=== PATIENT | female | born 1960 | race Caucasian/White ===

== ENCOUNTER 2017-08-22 08:22 | Day surgery (SDC) | payer OTHER ==
[~2017-08-22] VITALS: Ht 167.6 cm; Wt 102.1 kg
[~2017-08-22 08:22] MED LIST: Adipex-P37.5 MG; CLON1; GABA300; Hydrocodone-Ap1 EA20; LISI20; MELO7.5; MORP15ER; THYR60; TIZANIDINE HCL4 MG; ZOLP10
== END 2017-08-22 10:38 | disposition home or self-care (01) ==
LOC: ORSCSDS 08:22
PROVIDERS: Ophthalmology
PROC: 08RJ3JZ Replacement of Right Lens with Synthetic Substitute, Percutaneous Approach (ICD-10-PCS; principal; 2017-08-22 10:00)
DX: H25.11 Age-related nuclear cataract, right eye (principal); I10 Essential (primary) hypertension; E03.9 Hypothyroidism, unspecified; Z79.899 Other long term (current) drug therapy
CPT/HCPCS: J2250; J3301; J7120; V2632

== ENCOUNTER 2017-10-31 06:07 | Day surgery (SDC) | payer OTHER ==
[~2017-10-31] VITALS: Ht 167.6 cm; Wt 107.2 kg
[~2017-10-31 06:07] MED LIST changes: +PRED1
== END 2017-10-31 07:55 | disposition home or self-care (01) ==
LOC: ORSCSDS 06:07
PROVIDERS: Ophthalmology
PROC: 08RK3JZ Replacement of Left Lens with Synthetic Substitute, Percutaneous Approach (ICD-10-PCS; principal; 2017-10-31 07:30)
DX: H25.12 Age-related nuclear cataract, left eye (principal); I10 Essential (primary) hypertension; E03.9 Hypothyroidism, unspecified; Z79.899 Other long term (current) drug therapy; E66.9 Obesity, unspecified; Z68.38 Body mass index [BMI] 38.0-38.9, adult
CPT/HCPCS: J2001; J2250; J3010; J3301; J7120; V2632

== ENCOUNTER → 2018-06-17 | Outpatient (CLI) | payer OTHER ==
[2018-06-17 19:34] LABS: Creatinine, Blood 0.81 mg/dL (0.40-1.00); Glomerular Filtration Rate >60 (60-)
== END | disposition home or self-care (01) ==
LOC: LAB 16:30 → LAB SHORT 16:30
PROVIDERS: Physician Assistant
DX: E03.9 Hypothyroidism, unspecified (principal); Z91.89 Other specified personal risk factors, not elsewhere classified
CPT/HCPCS: 82565; 84443

== ENCOUNTER 2018-06-24 07:47 | Day surgery (SDC) | payer OTHER ==
[~2018-06-24] VITALS: Ht 165.1 cm; Wt 100.4 kg
[~2018-06-24 07:47] MED LIST changes: +DICLOFENAC SOD100 G1 TOP; +LEVO-T88 MCG PO; +LISI20 PO; +MORP15ER PO; +Norco 10-325 T1 EACH PO; +TRAM50 PO; +ZOLP10 PO; +Zanaflex4 M1 PO
--- NOTE | 2018-06-24 08:48 | NUR ---
PATIENT GAVE PERMISSION FOR ME TO CARE FOR HER TODAY 06/24/18. History, Chart, Medications and Allergies reviewed before start of procedure.Patient confirms NPO status and agrees with scheduled surgery. Patient states colon prep results clear.Lungs clear T/O to Auscultation.
--- NOTE | 2018-06-24 08:55 | NUR ---
History, Chart, Medications and Allergies reviewed before start of procedure. STUDENT RN ASSISTING IN PRE PROCEDURE CARE. AGREE WITH HER CHARTING AND CARE.
--- NOTE | 2018-06-24 09:23 | NUR ---
06/24/18 0923 [place] Roque PATIENT DETERMINED TO BE ASA APPROPRIATE FOR PROPOFOL SEDATION PRIOR TO START OF PROCEDURE BY . 3-LEAD EKG REVIEWED WITH PHYSICIAN PRIOR TO START OF PROCEDURE.PATIENT CONFIRMS NPO STATUS AND AGREES WITH SCHEDULED PROCEDURE.History, Chart, Medications and Allergies reviewed before start of procedure.MONITOR INTACT WITH CONTINUOUS PULSE OXIMETRY AND INTERMITTENT BP.O2 VIA N/C INTACT THROUGHOUT SEDATION/PROCEDURE.
--- NOTE | 2018-06-24 10:04 | NUR ---
PT TO STEP. DENIES PAIN OR NAUSEA.
--- NOTE | 2018-06-24 10:11 | NUR ---
WRITTEN AND VERBAL D/C INSTUCTIONS GIVEN TO PT WITH STATED UNDERSTANDING.
== END 2018-06-24 23:02 | disposition home or self-care (01) ==
LOC: ORSCMMR 07:47 → ORD 09:00 → ORSCMMR 09:00
PROVIDERS: Internal Medicine Gastroenterology
PROC: 0DBN8ZX Excision of Sigmoid Colon, Via Natural or Artificial Opening Endoscopic, Diagnostic (ICD-10-PCS; principal; 2018-06-24 09:00)
DX: Z12.11 Encounter for screening for malignant neoplasm of colon (principal); D12.5 Benign neoplasm of sigmoid colon; I10 Essential (primary) hypertension; E03.9 Hypothyroidism, unspecified; Z79.899 Other long term (current) drug therapy
CPT/HCPCS: 88305; J2250; J2704; J7120

== ENCOUNTER → 2018-08-14 | Outpatient (CLI) | payer OTHER ==
[2018-08-14 19:40] LABS: Anion Gap 6 mmol/L (6-16); Blood Urea Nitrogen 15 mg/dL (8-24); Bun/Creatinine Ratio 19.5 (12.0-20.0); CO2, Blood 26 mmol/L (21-32); Calcium, Blood 8.7 mg/dL (8.5-10.1); Chloride, Blood 109 mmol/L (98-108); Creatinine, Blood 0.77 mg/dL (0.40-1.00); Glomerular Filtration Rate >60 (60-); Glucose, Blood 117 mg/dL (70-99); Potassium, Blood 3.9 mmol/L (3.5-5.5); Sodium, Blood 141 mmol/L (136-145)
== END | disposition home or self-care (01) ==
LOC: LAB SHORT 19:12 → LAB 19:12
PROVIDERS: Physician Assistant
DX: E03.9 Hypothyroidism, unspecified (principal); I10 Essential (primary) hypertension
CPT/HCPCS: 80048; 84443